=== PATIENT | male | born 1960 | race Caucasian/White ===

== ENCOUNTER 2016-06-08 19:18 | Emergency (ER) | payer MEDICARE, BC ==
[2016-06-08] MEDS ORDERED: Hydrogen Peroxide 3% Top Soln 240 ML Bottle ONE (19:25)
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
[2016-06-08] MEDS ORDERED: Lidocaine 1% with EPINEPHrine 1:100,000 50 ML MDV INJECT STA (20:09)
[2016-06-08] MEDS ORDERED: Bacitracin Oint 1 GM U/D Packet TOP ONE (20:57)
[2016-06-08] MEDS ORDERED: Acetaminophen 500 MG Tab PO ONE (22:26)
--- NOTE | 2016-06-09 09:03 | CR ---
Chest 1V Frontal HISTORY: TRAUMA COMPARISON: 06/21/2011 FINDINGS: Lungs appear mildly hyperinflated. No acute infiltrate is identified. Cardiomediastinal silhouette i s within normal limits. No vascular redistribution or pleural fluid can be seen. Pacemaker generator /AICD overlies the left upper chest. Lead wire appears intact. Bony structures and soft tissues are unremarkable. IMPRESSION: Mild hyperinflation. No acute chest abnormality identified.
== END 2016-06-08 23:20 | disposition home or self-care (01) ==
LOC: JP.ED 19:18
DX: S01.81XA Laceration without foreign body of other part of head, initial encounter (principal); S09.90XA Unspecified injury of head, initial encounter; I25.2 Old myocardial infarction; I10 Essential (primary) hypertension; F41.9 Anxiety disorder, unspecified; F32.9 Major depressive disorder, single episode, unspecified; Z90.49 Acquired absence of other specified parts of digestive tract; Z95.0 Presence of cardiac pacemaker; Z98.890 Other specified postprocedural states; Z87.891 Personal history of nicotine dependence; Z79.82 Long term (current) use of aspirin; Z79.01 Long term (current) use of anticoagulants; Z79.899 Other long term (current) drug therapy; X58.XXXA Exposure to other specified factors, initial encounter
CPT/HCPCS: 12015; 36415; 70450; 71010; 72125; 80053; 83690; 84484; 85027; 93005; 93010; 99283; 99284; A9270; G0480

== ENCOUNTER 2019-05-12 15:46 | Emergency (ER) | payer BC, MEDICARE ==
[2019-05-12 16:00] VITALS: BP 150/105; PULSE 77
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
== END 2019-05-12 16:24 | disposition home or self-care (01) ==
LOC: JP.ED 15:46
DX: F41.9 Anxiety disorder, unspecified (principal); I10 Essential (primary) hypertension; I25.2 Old myocardial infarction; F32.9 Major depressive disorder, single episode, unspecified; F17.210 Nicotine dependence, cigarettes, uncomplicated; Z79.899 Other long term (current) drug therapy; Z79.01 Long term (current) use of anticoagulants; Z79.82 Long term (current) use of aspirin
CPT/HCPCS: 99283

== ENCOUNTER 2023-07-22 15:09 | Emergency (ER) | payer MEDICARE ==
[2023-07-22 16:05] VITALS: BP 148/84; PULSE 66
[2023-07-22] MEDS: LORazepam 1 MG Tab PO ONE (16:57)
== END 2023-07-22 17:06 | disposition home or self-care (01) ==
LOC: JP.ED 15:09
DX: F51.01 Primary insomnia (principal); F41.9 Anxiety disorder, unspecified; I10 Essential (primary) hypertension; I25.2 Old myocardial infarction; Z79.82 Long term (current) use of aspirin; Z79.899 Other long term (current) drug therapy; Z79.01 Long term (current) use of anticoagulants
CPT/HCPCS: 99283; A9270